=== PATIENT | male | born 1960 | race Caucasian/White ===

== ENCOUNTER 2016-09-11 17:52 | Emergency (ER) | payer OTHER ==
[~2016-09-11] VITALS: Ht 177.8 cm; Wt 122.5 kg
--- NOTE | 2016-09-11 18:11 | ED Dyspnea ---
General Stated Complaint: FEVER, SOA, CONGESTION Source of Information: Patient, RN Notes Reviewed Exam Limitations: No Limitations History of Present Illness Time Seen by Provider: 18:09 Initial Comments As above and below. Tmax unknown. Cough is nonproductive. Timing/Duration: Other Activities at Onset: None Prior Episodes/Possible Cause: Other (once before and was dx c/ pneumonia) Modifying Factors: Worse With Activity, Worse With Coughing Associated Symptoms: Cough, Fever, Other (a little nauseated) Allergies and Home Medications Allergies Coded Allergies: prochlorperazine (Verified Allergy, Intermediate, MUSCLE SPASMS, 09/11/16) Home Medications Allopurinol 100 Mg Tablet, #60 (Reported) Atorvastatin Calcium 20 Mg Tablet, #30 (Reported) Benzonatate 200 Mg Capsule, #21 (Reported) Hydrochlorothiazide 25 Mg Tablet, #30 (Reported) Hydrocodone/Chlorphen P-Stirex 480 Ml Za.er.12h, 5 ML PO Q12H, #120 Ref 0 Prescribed by: ESTHER ZHANG on 09/11/162013 Levofloxacin 500 Mg Tablet, #7 (Reported) Losartan Potassium 50 Mg Tablet, #30 (Reported) Nebivolol HCl 10 Mg Tab, #30 (Reported) Constitutional: see HPI, fever, malaise Respiratory: see HPI, cough, dyspnea on exertion, short of breath Cardiovascular: No chest pain Gastrointestinal: No abdominal pain, nausea (mild) Genitourinary: No dysuria All Other Systems Reviewed Negative Unless Noted: Yes (Negative excepted noted.) Past Sutyqic-[place]-Jfxqzu Hx Patient Social History Recent Foreign Travel: No Contact w/Someone Who Travel: No Physical Exam Vital Signs Vital Sign - Last 12Hours 09/11/16 17:52 Temp 100.5 Pulse 66 Resp 16 B/P (MAP) 135/80 Pulse Ox 97 Capillary Refill : General Appearance: No Apparent Distress, WD/WN, Obese, Other (appears to not feel well.) HEENT: Pharynx Normal Neck: Supple Respiratory: Lungs Clear, No Respiratory Distress Cardiovascular: Regular Rate, Rhythm Gastrointestinal: Non Tender Rectal: Deferred Neurologic/Psychiatric: Alert, Oriented x3, No Motor/Sensory Deficits, Depressed Affect Skin: Warm/Dry Focused Exam Lactic Acid Level Laboratory Tests Test 09/11/16 18:15 Lactic Acid Level 1.23 MMOL/L (0.50-2.00) Progress/Results/Core Measures Results/Orders Lab Results Laboratory Tests Test 09/11/16 18:15 Range/Units White Blood Count 6.0 4.3-11.0 10^3/uL Red Blood Count 5.11 4.35-5.85 10^6/uL Hemoglobin 15.7 13.3-17.7 G/DL Hematocrit 47 40-54 % Mean Corpuscular Volume 91 80-99 FL Mean Corpuscular Hemoglobin 31 25-34 PG Mean Corpuscular Hemoglobin Concent 34 32-36 G/DL Red Cell Distribution Width 13.3 10.0-14.5 % Platelet Count 154 130-400 10^3/uL Mean Platelet Volume 10.7 H 7.4-10.4 FL Neutrophils (%) (Auto) 73 42-75 % Lymphocytes (%) (Auto) 16 12-44 % Monocytes (%) (Auto) 10 0-12 % Eosinophils (%) (Auto) 1 0-10 % Basophils (%) (Auto) 1 0-10 % Neutrophils # (Auto) 4.4 1.8-7.8 X 10^3 Lymphocytes # (Auto) 1.0 1.0-4.0 X 10^3 Monocytes # (Auto) 0.6 0.0-1.0 X 10^3 Eosinophils # (Auto) 0.0 0.0-0.3 10^3/uL Basophils # (Auto) 0.0 0.0-0.1 10^3/uL Sodium Level 138 135-145 MMOL/L Potassium Level 3.8 3.6-5.0 MMOL/L Chloride Level 102 98-107 MMOL/L Carbon Dioxide Level 23 21-32 MMOL/L Anion Gap 13 5-14 MMOL/L Blood Urea Nitrogen 15 7-18 MG/DL Creatinine 1.33 H 0.60-1.30 MG/DL Estimat Glomerular Filtration Rate 56 BUN/Creatinine Ratio 11 Glucose Level 126 H 70-105 MG/DL Lactic Acid Level 1.23 0.50-2.00 MMOL/L Calcium Level 8.9 8.5-10.1 MG/DL Magnesium Level 1.9 1.8-2.4 MG/DL Total Bilirubin 0.4 0.1-1.0 MG/DL Aspartate Amino Transf (AST/SGOT) 32 5-34 U/L Alanine Aminotransferase (ALT/SGPT) 36 0-55 U/L Alkaline Phosphatase 53 40-136 U/L Troponin I < 0.30 <0.30 NG/ML B-Type Natriuretic Peptide < 10.0 <100.0 PG/ML Total Protein 6.9 6.4-8.2 G/DL Albumin 4.0 3.2-4.5 G/DL Lipase 20 8-78 U/L Micro Results Microbiology 09/11/16 Influenza Types A,B Antigen (MIKEY) - Final, Complete My Orders Orders - ESTHER ZHANG DO Saline Lock/Iv-Start (09/11/16 18:11) Ekg Tracing (09/11/16 18:11) BNP (09/11/16 18:11) Cbc With Automated Diff (09/11/16 18:11) Comprehensive Metabolic Panel (09/11/16 18:11) Lactic Acid Analyzer (09/11/16 18:11) Lipase (09/11/16 18:11) Magnesium (09/11/16 18:11) Troponin I (09/11/16 18:11) Blood Culture (09/11/16 18:11) Chest Pa/Lat (2 View) (09/11/16 18:11) Saline Lock/Iv-Start (09/11/16 18:33) Ns Iv 1000 Ml (Sodium Chloride 0.9%) (09/11/16 18:33) Influenza A And B Antigens (09/11/16 19:02) Dexamethasone Pf Injection (Decadron Pf (09/11/16 20:15) Ketorolac Injection (Toradol Injection) (09/11/16 20:15) Medications Given in ED Current Medications Medications Dose Ordered Sig/[place] Route Start Time Stop Time Status Last Admin Dose Admin Dexamethasone Sodium Phosphate 10 mg ONCE ONCE IV 09/11/16 20:15 09/11/16 20:16 DC 09/11/16 20:20 10 MG Ketorolac Tromethamine 30 mg ONCE ONCE IVP 09/11/16 20:15 09/11/16 20:16 DC 09/11/16 20:20 30 MG Sodium Chloride 1,000 ml @ 0 mls/hr Q0M ONCE IV 09/11/16 18:33 09/11/16 18:35 DC 09/11/16 18:52 1,000 MLS/HR Vital Signs/I&O Vital Sign - Last 12Hours 09/11/16 17:52 Temp 100.5 Pulse 66 Resp 16 B/P (MAP) 135/80 Pulse Ox 97 ECG Initial ECG Impression Date: Sep 11, 2016 Initial ECG Impression Time: 18:08 Initial ECG Rate: 66 Initial ECG Rhythm: Normal Sinus Initial ECG Intervals: Normal Initial ECG Impression: Normal Initial ECG Comparisson: No Previous ECG Available Diagnostic Imaging Diagonstic Imaging: Xray Plain Films/CT/US/NM/MRI: chest (negative per radiologist) Departure Impression Impression: Primary Impression: Influenza B Disposition: HOME, SELF-CARE Condition: Stable Departure-Patient Inst. Decision time for Depature: 20:13 Referrals: MELISSA ZHAO MD (PCP) Primary Care Physician Patient Instructions: Flu, Adult (DC) Add. Discharge Instructions: RECOMMEND ALTERNATING 100 mg OF TYLENOL WITH 600 mg OF IBUPROFEN EVERY 3 HOURS UNTIL BETTER. Scripts Hydrocodone/Chlorphen P-Stirex (Tussionex Pennkinetic Susp) 480 Ml Za.er.12h 5 ML PO Q12H for Cough, #120 ML 0 Refills Prov: ESTHER ZHANG DO 09/11/16 ESTHER ZHANG DO Sep 11, 2016 18:10
[2016-09-11] MEDS ORDERED: ALLO100T (18:19)
[2016-09-11] MEDS ORDERED: BENZ200C51 (18:19)
[2016-09-11] MEDS ORDERED: HYDR25TA4 (18:19)
[2016-09-11] MEDS ORDERED: ATOR20TA66 (18:19)
[2016-09-11] MEDS ORDERED: NFNEB10T (18:19)
[2016-09-11] MEDS ORDERED: LEVO500T80 (18:19)
[2016-09-11] MEDS ORDERED: LOSA50TA36 (18:19)
[2016-09-11] MEDS ORDERED: NS IV 1000 ML 1,000 ML IV ONE (18:33)
[2016-09-11 18:37] LABS: BASOPHILS % (AUTO) 1 % (0-10); EOSINOPHILS % (AUTO) 1 % (0-10); LYMPHOCYTES % (AUTO) 16 % (12-44); MEAN CORPUSCULAR HEMOGLOBIN 31 PG (25-34); MEAN CORPUSCULAR HGB CONC 34 G/DL (32-36); MEAN CORPUSCULAR VOLUME 91 FL (80-99); MEAN PLATELET VOLUME 10.7 FL (7.4-10.4); MONOCYTES # (AUTO) 0.6 X 10^3 (0.0-1.0); MONOCYTES % (AUTO) 10 % (0-12); NEUTROPHILS # (AUTO) 4.4 X 10^3 (1.8-7.8); NEUTROPHILS % (AUTO) 73 % (42-75); PLATELET COUNT 154 10^3/uL (130-400); RED BLOOD COUNT 5.11 10^6/uL (4.35-5.85); RED CELL DISTRIBUTION WIDTH 13.3 % (10.0-14.5)
--- NOTE | 2016-09-11 18:48 | Diagnostic Imaging Report ---
INDICATION: Cough, short of air for several days. EXAMINATION: PA and lateral views of the chest. FINDINGS: The heart size and vascularity are normal. Lungs are clear. There is no effusion. There is no acute bony abnormality. IMPRESSION: No acute abnormality is seen. Dictated by: Dictated on workstation # [id number]
[2016-09-11 18:58] LABS: ALANINE AMINOTRANSFERASE 36 U/L (0-55); ANION GAP 13 MMOL/L (5-14); ASPARTATE AMINO TRANSFERASE 32 U/L (5-34); BILIRUBIN,TOTAL 0.4 MG/DL (0.1-1.0); BLOOD UREA NITROGEN 15 MG/DL (7-18); BUN/CREATININE RATIO 11; CALCIUM 8.9 MG/DL (8.5-10.1); CARBON DIOXIDE 23 MMOL/L (21-32); CHLORIDE 102 MMOL/L (98-107); CREATININE SERUM 1.33 MG/DL (0.60-1.30); GFR ESTIMATED 56; GLUCOSE 126 MG/DL (70-105); LIPASE 20 U/L (8-78); MAGNESIUM 1.9 MG/DL (1.8-2.4); POTASSIUM 3.8 MMOL/L (3.6-5.0); SODIUM 138 MMOL/L (135-145); TOTAL PROTEIN 6.9 G/DL (6.4-8.2)
[2016-09-11 19:05] LABS: TROPONIN I < 0.30 NG/ML (<0.30)
[2016-09-11] MEDS ORDERED: HYDR115S2 PO (20:14)
[2016-09-11] MEDS ORDERED: KETOROLAC 30 MG/ML VIAL IVP ONE (20:15)
[2016-09-11] MEDS ORDERED: DEXAMETHASONE PF 10 MG/ML (DECADRON) VIAL IV ONE (20:15)
[2016-09-11 20:30] VITALS: BP 135/83
== END 2016-09-11 20:30 | disposition home or self-care (01) ==
LOC: EDUNIT# 17:52 → ER 17:54
DX: J10.1 Influenza due to other identified influenza virus with other respiratory manifestations (principal); R50.9 Fever, unspecified; Z79.899 Other long term (current) drug therapy
CPT/HCPCS: 36415; 71020; 80053; 83605; 83690; 83735; 83880; 84484; 85025; 87040; 87804; 93005; 96361; 96374; 96375

== ENCOUNTER 2019-10-31 05:51 | Outpatient (RCR) | payer OTHER ==
[~2019-10-31] VITALS: Ht 177 cm; Wt 120.0 kg
[~2019-10-31 05:51] MED LIST: ALLO100T; ALLO100T PO; ATOR20TA66; ATOR20TA66 PO; BENZ200C51; HYDR115S2 PO; HYDR25TA4; HYDR25TA4 PO; LEVO500T80; LOSA50TA63; LOSA50TA63 PO; NFNEB10T
== END 2019-10-31 15:09 | disposition home or self-care (01) ==
LOC: PREOP 05:51
PROVIDERS: ATTEND Surgery
DX: Z01.818 Encounter for other preprocedural examination (principal); Z11.59 Encounter for screening for other viral diseases
CPT/HCPCS: 87635

== ENCOUNTER 2019-11-04 11:49 | Day surgery (SDC) | payer OTHER ==
[2019-11-04] VITALS (13 sets, daily range): BP systolic 114–156; BP diastolic 73–91
[~2019-11-04] VITALS: Ht 177 cm; Wt 120.0 kg
[2019-11-04] MEDS ORDERED: NS IV 500 ML 500 ML ONE (11:53)
[2019-11-04] MEDS ORDERED: NS IV 500 ML 500 ML IV PRN (11:58)
[2019-11-04] MEDS ORDERED: LIDOCAINE JELLY 2% 6 ML SYRINGE MM PRN (12:00)
[2019-11-04] MEDS ORDERED: fentaNYL INJECTION 100 MCG/2 ML AMP IVP ONE (12:00)
[2019-11-04] MEDS ORDERED: LIDOCAINE JELLY 2% 6 ML SYRINGE ONE (12:18)
[2019-11-04] MEDS ORDERED: fentaNYL INJECTION 100 MCG/2 ML AMP ONE (12:18)
[2019-11-04] MEDS ORDERED: MIDAZOLAM 5 MG/5 ML (VERSED) VIAL ONE (12:18)
[2019-11-04] MEDS: MIDAZOLAM 5 MG/5 ML (VERSED) VIAL IV PRN ×3 (12:37→13:01)
--- NOTE | 2019-11-04 12:39 | Conscious Sedation/ASA ---
Conscious Sedation Pre-Proced Time 12:00 ASA Score 2 For ASA 3 and 4: Consider anesthesia and medical clearance. Also, for patients with a history of failed moderate sedation consider anesthesia. Airway Lungs Heart ASA score ASA 1: a normal healthy patient ASA 2: a patient with a mild systemic disease (mid diabetes, controlled hypertension, obesity ASA 3: a patient with a severe systemic disease that limits activity (angina, COPD, prior Myocardial infarction) ASA 4: a patient with an incapacitating disease that is a constant threat to life (CHF, renal failure) ASA 5: a moribund patient not expected to survive 24 hrs. (ruptured aneurysm) ASA 6: a declared brain- patient whose organs are being harvested. For emergent operations, add the letter E after the classification Mallampati Classification Grade 2 Sedation Plan Analgesia, Amnesia, Plan communicated to team members, Discussed options with patient/fam, Discussed risks with patient/fam The patient is an appropriate candidate to undergo the planned procedure, sedation, and anesthesia. The patient immediately re-assessed prior to indication. HUY ANDINO MD Nov 04, 2019 12:39
--- NOTE | 2019-11-04 12:41 | Progress Note-Pre Operative ---
Pre-Operative Progress Note H&P Reviewed The H&P was reviewed, patient examined and no changes noted. Date Seen by Provider: Nov 04, 2019 Time Seen by Provider: 12:00 Date H&P Reviewed: Nov 04, 2019 Time H&P Reviewed: 12:00 Pre-Operative Diagnosis: screening o HUY ANDINO MD Nov 04, 2019 12:41
--- NOTE | 2019-11-04 12:42 | Discharge Inst-Surgical ---
D/C Lap Instructions-SINA Follow Up Activity as tolerated High Fiber Diet 25g or more per day Avoid Alcohol, Caffeine, Spicy [place] and Acid foods. Drink 64 fluid oz or more of fluids per day. Symptoms to Report: Fever over 101 degree F, Nausea/Vomiting If any problems/questions: Contact your physician or go to Emergency Room HUY ANDINO MD Nov 04, 2019 12:42
[2019-11-04] MEDS ORDERED: morphine INJ 10 MG/ML 1ML (SYR OR VIAL) IVP PRN ×2 (12:45)
[2019-11-04] MEDS ORDERED: ONDANSETRON 4 MG/2 ML (SDV) Z0FRAN IVP PRN (12:45)
[2019-11-04] MEDS ORDERED: HYDROcodone/APAP 5 MG/325 MG (LORTAB) TAB PO PRN (12:45)
[2019-11-04] MEDS ORDERED: ACETAMINOPHEN 325 MG TABLET PO PRN (12:45)
--- NOTE | 2019-11-04 14:18 | Progress Note-Post Operative ---
Post-Operative Progess Note Surgeon (s)/Sports Leadership Instructor (s) Surgeon HUY ANDINO MD Sports Leadership Instructor: none Pre-Operative Diagnosis screening colo Post-Operative Diagnosis mild sigmoid diverticulosis. Procedure & Operative Findings Date of Procedure 11/04/19 Procedure Performed/Findings colonoscopy. Anesthesia Type cs Estimated Blood Loss Estimated blood loss (mL): minimal Specimens/Packing Specimens Removed none HUY ANDINO MD Nov 04, 2019 14:18
--- NOTE | 2019-11-04 20:27 | OPERATIVE REPORT ---
DATE OF SERVICE: 11/04/2019 ATTENDING PRIMARY CARE PHYSICIAN: Dr. James Horton. PREOPERATIVE DIAGNOSIS: Screening colonoscopy. POSTOPERATIVE DIAGNOSIS: Mild sigmoid diverticulosis. PROCEDURE: Colonoscopy. SURGEON: Huy Andino MD ANESTHESIA: Conscious sedation. ESTIMATED BLOOD LOSS: Minimal. FINDINGS: No significant hemorrhoids. Prostate gland was palpable and appeared normal. Mild sigmoid diverticulosis. DISPOSITION: The patient tolerated the procedure well. INDICATIONS: The patient is a 59-year-old male referred over to us for screening colonoscopy. He states that he is doing well, does not report any major issues with diarrhea nor constipation as well as no red blood per rectum nor any dark tarry stools. At this point in his life, he has not had a colonoscopy. He does not report any family history of colon cancer. DESCRIPTION OF PROCEDURE: The patient was brought to the endoscopy suite, laid in left lateral decubitus position after adequate IV pain and sedative medications. A digital rectal examination was performed, which did not reveal any significant hemorrhoids. Prostate gland was palpable and appeared normal. The endoscope was then intubated to the anus and rectum gently insufflated. The endoscope was then advanced through the valves of Yu rectum with no polyps or any neoplasms identified. Through the sigmoid colon, a mild sigmoid diverticulosis identified. There were no mucosal inflammatory changes to indicate any active diverticulitis. The endoscope was then advanced to the remainder of the descending, transverse, ascending colon and the cecum. These segments were normal. There were no polyps or any neoplasms identified throughout the colon or rectum. The endoscope was then slowly withdrawn while taking a second look and suctioning of residual air with no additional findings. The patient tolerated the procedure well. We will recommend a high fiber diet with 30 grams of fiber daily as well as significant amounts of water to promote soft stools on a daily basis. If he is asymptomatic, he does not need another colonoscopy for another 10 years. Job ID: [id number] DocumentID: [id number] Dictated Date: 11/04/2019 13:11:52 Head Bellhop Captain Date: 11/04/2019 20:25:26 Dictated By: HUY ANDINO MD
== END 2019-11-04 14:15 | disposition home or self-care (01) ==
LOC: ENDO 11:49
PROVIDERS: ATTEND Surgery
DX: Z12.11 Encounter for screening for malignant neoplasm of colon (principal); K57.30 Diverticulosis of large intestine without perforation or abscess without bleeding; I10 Essential (primary) hypertension; M10.9 Gout, unspecified; Z88.8 Allergy status to other drugs, medicaments and biological substances; Z79.899 Other long term (current) drug therapy; Z80.1 Family history of malignant neoplasm of trachea, bronchus and lung

== ENCOUNTER → 2021-07-18 | Outpatient (CLI) | payer BC, OTHER ==
[~2021-07-18] MED LIST changes: -LEVO500T80; +LEVO500T81
== END ==
LOC: CARD 12:00
PROVIDERS: ATTEND Internal Medicine Cardiovascular Disease
DX: I11.9 Hypertensive heart disease without heart failure (principal); I25.10 Atherosclerotic heart disease of native coronary artery without angina pectoris
CPT/HCPCS: 93306

== ENCOUNTER 2021-08-05 10:11 | Outpatient (CLI) | payer BC, OTHER | END 2021-08-05 10:30 | LOC: SLEEP 10:11 | PROVIDERS: ATTEND Family Medicine | DX: Z00.00 Encounter for general adult medical examination without abnormal findings (principal); G47.33 Obstructive sleep apnea (adult) (pediatric); I10 Essential (primary) hypertension; E78.2 Mixed hyperlipidemia; K21.9 Gastro-esophageal reflux disease without esophagitis; R68.82 Decreased libido; Z87.39 Personal history of other diseases of the musculoskeletal system and connective tissue | CPT/HCPCS: G0399 ==

== ENCOUNTER → 2021-08-14 | Outpatient (CLI) | payer BC, OTHER ==
[~2021-08-14] VITALS: Ht 177 cm; Wt 118.0 kg
[~2021-08-14] MED LIST changes: +CATHETER FLUSH 10 ML SYR IVP PRN
[2021-08-14 09:26] VITALS: BP 185/100
--- NOTE | 2021-08-14 12:14 | Cardiology Stress Test Report ---
Stress Test Report Date of Procedure/Referring: Date of Procedure: Aug 14, 2021 PCP Ashlyn Coronado MD Admitting Physician James Horton MD Indications: HTN Baseline Heart Rate: 69 Baseline Blood Pressure: Blood Pressure Systolic: 185 Blood Pressure Diastolic: 100 Vital Signs Date Time Temp Pulse Resp B/P (MAP) Pulse Ox O2 Delivery O2 Flow Rate FiO2 08/14/21 09:26 69 185/100 (128) 98 Baseline Vital Signs Vital Signs Date Time Temp Pulse Resp B/P (MAP) Pulse Ox O2 Delivery O2 Flow Rate FiO2 08/14/21 09:26 69 185/100 (128) 98 Baseline EKG: Baseline EKG: NSR Summary: After explaining the procedure and details to the patient, he signed the consent and was brought to the stress nuclear laboratory. Patient exercised on standard Toni protocol, EKG, heart rate and blood pressure were monitored continuously, resting and stress doses of radio tracer were injected, imaging was acquired and reviewed in the short axis, horizontal long axis and vertical long axis views Patient was able to exercise for a total of 4 minutes on Toni protocol, METs 5.8 Maximum heart rate 142 Maximum blood pressure 228/113 Stress EKG, Minimal nondiagnostic changes Recovery EKG, Return to baseline TID: 1.03 SSS: 1 SDS: 1 EF: 66 Conclusion: 1. Fair exercise tolerance for a total of 4 minutes on standard Toni protocol, 5.8 METS achieving 89% of maximal expected heart rate 2. Baseline hypertension with severe hypertensive response to exercise with peak blood pressure 228/113 return to baseline during recovery 3. Minimal nondiagnostic EKG changes with exercise return to baseline during recovery 4. No significant ischemia or infarction on SPECT images 5. Normal left ventricular size, EF 66% ASHLYN CORONADO MD Aug 14, 2021 12:14
== END ==
LOC: CARD 07:45
PROVIDERS: ATTEND Internal Medicine Cardiovascular Disease
DX: I10 Essential (primary) hypertension (principal); I25.10 Atherosclerotic heart disease of native coronary artery without angina pectoris
CPT/HCPCS: 78452; 93017; A9502

== ENCOUNTER 2021-09-08 18:29 | Emergency (ER) | payer BC ==
[~2021-09-08] VITALS: Ht 177.8 cm; Wt 125.0 kg
[~2021-09-08 18:29] MED LIST changes: -CATHETER FLUSH 10 ML SYR IVP PRN
[2021-09-08 20:50] LABS: BASOPHILS # (AUTO) 0.1 10^3/uL (0.0-0.1); BASOPHILS % (AUTO) 1 % (0-10); EOSINOPHILS # (AUTO) 0.1 10^3/uL (0.0-0.3); EOSINOPHILS % (AUTO) 1 % (0-10); HEMATOCRIT 45 % (40-54); HEMOGLOBIN 14.8 g/dL (13.3-17.7); LYMPHOCYTES # (AUTO) 1.8 10^3/uL (1.0-4.0); LYMPHOCYTES % (AUTO) 22 % (12-44); MEAN CORPUSCULAR HEMOGLOBIN 31 pg (25-34); MEAN CORPUSCULAR HGB CONC 33 g/dL (32-36); MEAN CORPUSCULAR VOLUME 93 fL (80-99); MEAN PLATELET VOLUME 10.3 fL (9.0-12.2); MONOCYTES # (AUTO) 0.7 10^3/uL (0.0-1.0); MONOCYTES % (AUTO) 8 % (0-12); NEUTROPHILS # (AUTO) 5.6 10^3/uL (1.8-7.8); NEUTROPHILS % (AUTO) 68 % (42-75); PLATELET COUNT 245 10^3/uL (130-400); WHITE BLOOD COUNT 8.3 10^3/uL (4.3-11.0)
[2021-09-08 21:04] LABS: POTASSIUM 4.1 MMOL/L (3.6-5.0)
[2021-09-08 21:06] LABS: CALCIUM 9.4 MG/DL (8.5-10.1); INR 0.9 (0.8-1.4); PROTHROMBIN TIME PATIENT 12.7 SEC (12.2-14.7)
[2021-09-08 21:07] LABS: TOTAL PROTEIN 6.7 GM/DL (6.4-8.2)
[2021-09-08 21:09] LABS: BILIRUBIN,TOTAL 0.2 MG/DL (0.1-1.0)
[2021-09-08 21:10] LABS: CREATININE SERUM 1.32 MG/DL (0.60-1.30)
--- NOTE | 2021-09-08 21:13 | Diagnostic Imaging Report ---
EXAMINATION: Chest, 1 view. HISTORY: Chest pain. COMPARISON: None available. FINDINGS: The lungs are clear without edema or pneumonia. No pleural effusion or pneumothorax. Heart size is normal. IMPRESSION: Clear lungs. Dictated by: Dictated on workstation # [id number]
[2021-09-08] MEDS ORDERED: hydrALAZINE (APESOLINE) 20 MG/ML VIAL IV ONE ×2 (21:15→22:45)
[2021-09-08 21:22] LABS: CREATINE KINASE MB 1.2 NG/ML (<6.6)
--- NOTE | 2021-09-08 21:26 | ED Cardiac General ---
History of Present Illness General Chief Complaint: Cardiac/General Problems Stated Complaint: HIGH BP/DIZZY/HEADACHE Nursing Triage Note: STARTED OF AND ON DURING WEEK AND INCREASED SYMPTOMS THIS WEEKEND Source: patient History of Present Illness Date Seen by Provider: Sep 08, 2021 Time Seen by Provider: 20:40 Initial Comments PT ARRIVES VIA POV FROM HOME C/O ELEVATED BLOOD PRESSURE STATES HE "JUST DIDN'T FEEL RIGHT" SO HE DECIDED TO CHECK HIS BLOOD PRESSURE AND WAS 205/105--CHECKED IT A COUPLE OF TIMES AND HAD SIMILAR READINGS STATES IT "FEELS LIKE I'M IN A FOG" SLIGHT DIZZINESS SLIGHT HEAD PRESSURE SLIGHT VISION CHANGES--"LIKE I'M IN A FOG" SLIGHT "STUFFINESS" IN CHEST--DENIES CHEST PAIN NO SHORTNESS OF BREATH NO PARESTHESIAS OR MOTOR DEFICITS NO SWEATS NO NAUSEA NO SWELLING IN LEGS/FEET OR PAIN IN CALVES LATER STATES HE HAS ACTUALLY BEEN FEELING THIS WAY OFF AND ON ALL WEEK BUT HAS NOT CHECKED HIS BLOOD PRESSURE UNTIL TONIGHT STATES BLOOD PRESSURE MEDICATION DOSE WAS INCREASED 3-4 WEEKS AGO--L[place]ARTAN, AND HIS STATIN WAS STOPPED DUE TO ABNORMAL LAB--DOES NOT KNOW WHAT LAB WAS ABNORMAL STATES HE HAD A STRESS TEST 3-4 WEEKS AGO FOR PALPITATIONS, STATES THEY WERE "CONCERNED ABOUT MY BLOOD PRESSURE" BUT OTHERWISE THE STRESS TEST WAS NORMAL. PER PT . PCP: DR. REILLY Allergies and Home Medications Allergies Coded Allergies: prochlorperazine (Verified Allergy, Intermediate, MUSCLE SPASMS, 10/27/19) Patient Home Medication List Home Medication List Reviewed: Yes Allopurinol (Allopurinol) 100 Mg Tablet, 100 MG PO DAILY, (Reported) Entered as Reported by: MAC CARTER on 10/27/19 1431 Atorvastatin Calcium (Atorvastatin Calcium) 20 Mg Tablet, 20 MG PO DAILY, (Reported) Entered as Reported by: MAC CARTER on 10/27/19 1431 Hydralazine HCl (Hydralazine HCl) 10 Mg Tablet, 10 MG PO TID PRN for BLOOD PRESSURE Prescribed by: MAYUR COLE on 09/08/212148 Hydrochlorothiazide (Hydrochlorothiazide) 25 Mg Tablet, 25 MG PO DAILY, (Reported) Entered as Reported by: MAC CARTER on 10/27/19 1431 Losartan Potassium (Losartan Potassium) 50 Mg Tablet, 50 MG PO DAILY, (Reported) Entered as Reported by: MAC CARTER on 10/27/19 1431 Review of Systems Review of Systems Constitutional: see HPI, dizziness EENTM: No Symptoms Reported Respiratory: No Symptoms Reported Cardiovascular: See HPI; Denies Chest Pain, Denies Edema, Denies Irregular Heart Rate; Lightheadedness; Denies Palpitations, Denies Syncope Gastrointestinal: No Symptoms Reported Genitourinary: No Symptoms Reported Musculoskeletal: no symptoms reported Skin: no symptoms reported Psychiatric/Neurological: See HPI Endocrine: No Symptoms Reported Hematologic/Lymphatic: No Symptoms Reported Past Htbowag-Iawhxl-Opuncj Hx Seasonal Allergies Seasonal Allergies: No Past Medical History Surgeries: No Respiratory: Yes Pneumonia Cardiac: Yes High Cholesterol, Hypertension Neurological: No Sexually Transmitted Disease: No HIV/AIDS: No Genitourinary: No Gastrointestinal: No Musculoskeletal: Yes Gout Endocrine: Yes (OBESITY) HEENT: No Loss of Vision: Denies Hearing Impairment: Denies Cancer: No Psychosocial: No Blood Disorders: No Adverse Reaction/Blood Tranf: No (N/A) Family Medical History STRESS TEST 08/14/[address] ESPINAL: Conclusion: 1. Fair exercise tolerance for a total of 4 minutes on standard Toni protocol, 5.8 METS achieving 89% of maximal expected heart rate 2. Baseline hypertension with severe hypertensive response to exercise with peak blood pressure 228/113 return to baseline during recovery 3. Minimal nondiagnostic EKG changes with exercise return to baseline during recovery 4. No significant ischemia or infarction on SPECT images 5. Normal left ventricular size, EF 66% Physical Exam Vital Signs Vital Signs - First Documented 09/08/21 09/08/21 19:25 20:33 Temp 36.9 Pulse 61 Resp 20 B/P (MAP) 180/108 (132) Pulse Ox 96 O2 Delivery Room Air Capillary Refill : Height, Weight, BMI Height: 5'10.00" Weight: 270lbs. oz. 122.513459mn; 39.00 BMI Method:Stated General Appearance: No Apparent Distress, WD/WN, Obese Neck: Full Range of Motion, Normal Inspection, Non Tender, Supple; No Carotid Bruit, No JVD Respiratory: Normal Breath Sounds, No Accessory Muscle Use, No Respiratory Distress Cardiovascular: Regular Rate, Rhythm, No Edema, No JVD, No Murmur, Normal Peripheral Pulses Gastrointestinal: Non Tender, Soft Extremity: Normal Capillary Refill, Normal Inspection, Normal Range of Motion, Non Tender, No Calf Tenderness, No Pedal Edema Neurologic/Psychiatric: Alert, Oriented x3, No Motor/Sensory Deficits, Normal Mood/Affect, manager business operations II-XII Norm as Tested; No Abnormal Cerebellar Tests Skin: Normal Color, Warm/Dry Progress/Results/Core Measures Results/Orders Lab Results Laboratory Tests Test 09/08/21 20:41 Range/Units White Blood Count 8.3 4.3-11.0 10^3/uL Red Blood Count 4.81 4.30-5.52 10^6/uL Hemoglobin 14.8 13.3-17.7 g/dL Hematocrit 45 40-54 % Mean Corpuscular Volume 93 80-99 fL Mean Corpuscular Hemoglobin 31 25-34 pg Mean Corpuscular Hemoglobin Concent 33 32-36 g/dL Red Cell Distribution Width 13.2 10.0-14.5 % Platelet Count 245 130-400 10^3/uL Mean Platelet Volume 10.3 9.0-12.2 fL Immature Granulocyte % (Auto) 0 % Neutrophils (%) (Auto) 68 42-75 % Lymphocytes (%) (Auto) 22 12-44 % Monocytes (%) (Auto) 8 0-12 % Eosinophils (%) (Auto) 1 0-10 % Basophils (%) (Auto) 1 0-10 % Neutrophils # (Auto) 5.6 1.8-7.8 10^3/uL Lymphocytes # (Auto) 1.8 1.0-4.0 10^3/uL Monocytes # (Auto) 0.7 0.0-1.0 10^3/uL Eosinophils # (Auto) 0.1 0.0-0.3 10^3/uL Basophils # (Auto) 0.1 0.0-0.1 10^3/uL Immature Granulocyte # (Auto) 0.0 0.0-0.1 10^3/uL Prothrombin Time 12.7 12.2-14.7 SEC INR Comment 0.9 0.8-1.4 Activated Partial Thromboplast Time 30 24-35 SEC Sodium Level 140 135-145 MMOL/L Potassium Level 4.1 3.6-5.0 MMOL/L Chloride Level 105 98-107 MMOL/L Carbon Dioxide Level 22 21-32 MMOL/L Anion Gap 13 5-14 MMOL/L Blood Urea Nitrogen 20 H 7-18 MG/DL Creatinine 1.32 H 0.60-1.30 MG/DL Estimat Glomerular Filtration Rate 61 BUN/Creatinine Ratio 15 Glucose Level 109 H 70-105 MG/DL Calcium Level 9.4 8.5-10.1 MG/DL Corrected Calcium 9.4 8.5-10.1 MG/DL Magnesium Level 2.0 1.6-2.4 MG/DL Total Bilirubin 0.2 0.1-1.0 MG/DL Aspartate Amino Transf (AST/SGOT) 24 5-34 U/L Alanine Aminotransferase (ALT/SGPT) 41 0-55 U/L Alkaline Phosphatase 52 40-136 U/L Total Creatine Kinase 92 30-200 U/L Creatine Kinase MB 1.2 <6.6 NG/ML Myoglobin 47.2 10.0-92.0 NG/ML Troponin I < 0.028 <0.028 NG/ML B-Type Natriuretic Peptide 40.9 <100.0 PG/ML Total Protein 6.7 6.4-8.2 GM/DL Albumin 4.0 3.2-4.5 GM/DL Amylase Level 83 25-125 U/L Lipase 89 H 8-78 U/L My Orders Orders - MAYUR COLE DO Ed Iv/Invasive Line Start (09/08/21 20:40) Ekg Tracing (09/08/21 20:40) O2 (09/08/21 20:40) Monitor-Rhythm Ecg Trace Only (09/08/21 20:40) Cbc With Automated Diff (09/08/21 20:40) Magnesium (09/08/21 20:40) Chest 1 View, Ap/Pa Only (09/08/21 20:40) Ekg Tracing (09/08/21 20:40) Comprehensive Metabolic Panel (09/08/21 20:40) Myoglobin Serum (09/08/21 20:40) Protime With Inr (09/08/21 20:40) Partial Thromboplastin Time (09/08/21 20:40) O2 (09/08/21 20:40) Ed Iv/Invasive Line Start (09/08/21 20:40) Creatine Kinase (09/08/21 20:40) Creatine Kinase Mb (09/08/21 20:40) Lipase (09/08/21 20:40) Amylase (09/08/21 20:40) Bnp [place] (09/08/21 20:40) Troponin I [place] (09/08/21 20:40) Hydralazine Injection (Apresoline Inject (09/08/21 21:15) Hydralazine Injection (Apresoline Inject (09/08/21 22:45) Medications Given in ED Current Medications Medications Dose Ordered Sig/Madeline Route Start Time Stop Time Status Last Admin Dose Admin Hydralazine HCl 10 mg ONCE ONCE IV 09/08/21 21:15 09/08/21 21:16 DC 09/08/21 21:33 10 MG Hydralazine HCl 10 mg ONCE ONCE IV 09/08/21 22:45 09/08/21 22:46 DC 09/08/21 22:43 10 MG Vital Signs/I&O 09/08/21 09/08/21 09/08/21 19:25 20:33 23:34 Temp 36.9 36.9 Pulse 61 72 Resp 20 16 B/P (MAP) 180/108 (132) 174/81 Pulse Ox 96 96 O2 Delivery Room Air Room Air Blood Pressure Mean: 132 Progress Progress Note : Progress Note GIVEN HYDRALAZINE BP DOWN TO 170'S SYSTOLIC PRIOR TO DISMISSAL UNEVENTFUL ER STAY PT HAS A FOLLOW UP APPOINTMENT THIS WEEK WITH DR. REILLY Initial ECG Impression Date: Sep 08, 2021 Initial ECG Impression Time: 20:47 Initial ECG Rate: 63 Initial ECG Rhythm: Normal Sinus Initial ECG Impression: Nonspecific Changes Diagnostic Imaging Comments CXR--PER RADIOLOGIST REPORT AT 2125 FINDINGS: The lungs are clear without edema or pneumonia. No pleural effusion or pneumothorax. Heart size is normal. IMPRESSION: Clear lungs. Reviewed: Reviewed by Me Departure Impression Primary Impression: Uncontrolled hypertension Disposition: HOME, SELF-CARE Condition: Improved Departure-Patient Inst. Referrals: JAE REILLY MD (PCP/Family) Primary Care Physician Patient Instructions: High Blood Pressure (DC), DASH Diet Add. Discharge Instructions: CONTINUE YOUR CURRENT MEDICATIONS PRESCRIBED FOLLOW UP WITH DR. REILLY THIS WEEK FOR FURTHER CARE All discharge instructions reviewed with patient and/or family. Voiced understanding. Scripts Hydralazine HCl (Hydralazine HCl) 10 Mg Tablet 10 MG PO TID PRN for BLOOD PRESSURE, #15 TAB TAKE NEEDED THREE TIMES A DAY FOR SYSTOLIC BP > 160 OR DIASTOLIC BP > 100 Prov: MAYUR COLE DO 09/08/21 MAYUR COLE DO Sep 08, 2021 21:26
[2021-09-08] MEDS ORDERED: HYDR-3922 PO (21:49)
[2021-09-08 23:34] VITALS: BP 174/81
== END 2021-09-08 23:40 | disposition home or self-care (01) ==
LOC: EDUNIT# 18:29 → ER 18:30
DX: I10 Essential (primary) hypertension (principal); E66.9 Obesity, unspecified; Z68.39 Body mass index [BMI] 39.0-39.9, adult
CPT/HCPCS: 36415; 71045; 80053; 82150; 82550; 82553; 83690; 83735; 83874; 83880; 84484; 85025; 85610; 85730; 93005; 93041

== ENCOUNTER → 2021-09-23 | Outpatient (CLI) | payer BC ==
[~2021-09-23] MED LIST changes: +HYDR-3922 PO
--- NOTE | 2021-09-23 09:00 | Diagnostic Imaging Report ---
EXAMINATION: US Renal Sono Limited and Renal Doppler Bilateral. TECHNIQUE: Multiple real-time grayscale images were obtained over the kidneys in various projections bilaterally. Duplex evaluation of renal arteries was also attempted. HISTORY: UNCONTROLLED HTN COMPARISON: None available. FINDINGS: The right kidney demonstrates normal echogenicity and cortical thickness. The right kidney measures 12.1 x 5.4 x 5.4 cm. No hydronephrosis. The left kidney demonstrates normal echogenicity and cortical thickness. The left kidney measures 12.1 x 5.0 x 5.2 cm. No hydronephrosis. Peak systolic velocities: Abdominal aorta: 123 cm/s Proximal right renal artery: 94 cm/s Mid right renal artery: 97 cm/s Distal right renal artery: 41 cm/s Proximal left renal artery: 59 cm/s Mid left renal artery: 51 cm/s Distal left renal artery: 44 cm/s Peak ratio to abdominal aorta: Right renal artery: 0.79 Left renal artery: 0.48 Resistive indices in arcuate arteries: Right: 0.66 Left: 0.60 IMPRESSION: 1. Normal kidneys without hydronephrosis. 2. No evidence for renal artery stenosis. Dictated by: Dictated on workstation # [id number]
== END ==
LOC: RAD 07:15
PROVIDERS: ATTEND Nurse Practitioner Family
DX: I10 Essential (primary) hypertension (principal)
CPT/HCPCS: 76770; 93975

== ENCOUNTER → 2022-06-05 | Outpatient (CLI) | payer BC ==
[~2022-06-05] MED LIST changes: +LEVO-55; -LEVO500T81
--- NOTE | 2022-06-05 09:17 | Diagnostic Imaging Report ---
PROCEDURE: MRI lumbar spine. TECHNIQUE: Multiplanar, multisequence MRI of the lumbar spine was performed without contrast. INDICATION: Chronic lower back pain. COMPARISON: None FINDINGS: For the purposes of this exam, last well-formed disc space is noted the L5-S1 level. Static alignment of lumbar spine is maintained. There is no significant anterolisthesis or retrolisthesis. There is no evidence of jumped facets. Vertebral body heights are maintained. There is no acute fracture. Marrow signal normal throughout. Intervertebral disc heights are also fairly well maintained, although there is loss of normal fluid type bright signal at the L4-L5 and L5-S1 levels. Posterior annular tears at these levels are also present. Visualized portions of distal cord are unremarkable. Conus terminates approximately the T12-L1 level. No abnormal intrathecal filling defects are seen. Pre and paravertebral soft tissue structures are unremarkable. Axial images demonstrate the following: T12-L1 through L3-L4: There is no large disc bulge, focal protrusion, nor spinal canal stenosis. L4-L5: There is small central posterior disc protrusion superimposed on broad-based posterior disc bulge. As a result, there is mild narrowing of spinal canal and bilateral neural foramen. L5-S1: There is mild broad-based posterior disc bulge, but no significant spinal canal stenosis. Minimal bilateral neural foraminal narrowing is noted. IMPRESSION: 1. 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 2. No acute fracture or dislocation. Dictated by: Dictated on workstation # [id number]
== END ==
LOC: RAD 07:39
PROVIDERS: ATTEND Family Medicine
DX: M47.816 Spondylosis without myelopathy or radiculopathy, lumbar region (principal); M47.817 Spondylosis without myelopathy or radiculopathy, lumbosacral region
CPT/HCPCS: 72148

== ENCOUNTER 2022-06-23 09:01 | Outpatient (RCR) | payer BC | END 2022-06-24 | disposition home or self-care (01) | PROVIDERS: ATTEND Family Medicine | DX: M54.16 Radiculopathy, lumbar region (principal); I10 Essential (primary) hypertension ==

== ENCOUNTER 2022-07-21 11:04 | Outpatient (RCR) | payer BC | END 2022-07-22 | disposition home or self-care (01) | PROVIDERS: ATTEND Family Medicine | DX: M54.16 Radiculopathy, lumbar region (principal); I10 Essential (primary) hypertension ==

== ENCOUNTER 2022-08-21 09:21 | Outpatient (RCR) | payer BC | END 2022-08-22 | disposition home or self-care (01) | PROVIDERS: ATTEND Family Medicine | DX: M54.16 Radiculopathy, lumbar region (principal); I10 Essential (primary) hypertension ==

== ENCOUNTER 2022-09-16 09:05 | Outpatient (RCR) | payer BC | END 2022-09-21 | disposition home or self-care (01) | PROVIDERS: ATTEND Family Medicine | DX: M54.50 Low back pain, unspecified (principal); I10 Essential (primary) hypertension ==

== ENCOUNTER 2022-10-14 08:25 | Outpatient (RCR) | payer BC | END 2022-10-22 | disposition home or self-care (01) | PROVIDERS: ATTEND Family Medicine | DX: M54.50 Low back pain, unspecified (principal); I10 Essential (primary) hypertension ==

== ENCOUNTER 2022-11-12 08:23 | Outpatient (RCR) | payer BC | END 2022-11-21 | disposition home or self-care (01) | PROVIDERS: ATTEND Family Medicine | DX: M54.50 Low back pain, unspecified (principal) ==